=== PATIENT | female | born 1945 | race Caucasian/White ===

== ENCOUNTER 2020-09-02 13:51 | Emergency (ER) | payer MEDICARE ==
[~2020-09-02 13:51] MED LIST: ALAVERT10 MG PO; ALPRAZOLAM0.5 MG PO; AMOXICILLIN875 MG PO; CATAPRES0.3 MG PO; CELEXA10 MG PO; CILOSTAZOL50 MG PO; FENOFIBRATE54 MG PO; LEVOTHYROXINE75 MCG PO; ZESTRIL20 MG PO; ZOCOR40 MG PO
[2020-09-02 16:42] LABS: HEMOGLOBIN 13.5 gm/dl (12.3-15.3); RED BLOOD COUNT 4.28 M/UL (4.00-5.10)
[2020-09-02 16:44] LABS: WHITE BLOOD COUNT 9.7 K/UL (4.5-11.0)
[2020-09-02 17:10] LABS: BUN/CREATININE RATIO 16 (0-10)
== END 2020-09-02 16:32 | disposition home or self-care (01) ==
LOC: ER1 13:51
PROVIDERS: Physician Assistant
DX: R07.89 Other chest pain (principal); M79.621 Pain in right upper arm; I12.9 Hypertensive chronic kidney disease with stage 1 through stage 4 chronic kidney disease, or unspecified chronic kidney disease; E11.22 Type 2 diabetes mellitus with diabetic chronic kidney disease; N18.4 Chronic kidney disease, stage 4 (severe); E78.5 Hyperlipidemia, unspecified; F17.200 Nicotine dependence, unspecified, uncomplicated; Z88.6 Allergy status to analgesic agent
CPT/HCPCS: 71045; 80053; 82550; 82553; 83874; 84484; 85025; 93971; 99285

== ENCOUNTER 2021-03-01 11:02 | Inpatient (IN) | payer MEDICARE ==
[~2021-03-01] VITALS: Ht 152.4 cm; Wt 83.5 kg
[~2021-03-01 11:02] MED LIST changes: -ALPRAZOLAM0.5 MG PO; +LEVOTHYROXINE100 MCG PO; -LEVOTHYROXINE75 MCG PO; +XANAX1 MG PO
[2021-03-01 11:47] LABS: RED BLOOD COUNT 3.61 M/UL (4.00-5.10); WHITE BLOOD COUNT 12.9 K/UL (4.5-11.0)
[2021-03-01] MEDS ORDERED: CARVEDILOL6.25 MG PO (15:20)
[2021-03-01] MEDS ORDERED: LEVOCETIRIZINE D5 MG PO (15:21)
[2021-03-01] MEDS ORDERED: HYDRALAZINE HCL10 MG PO (15:21)
[2021-03-01] MEDS ORDERED: AMLODIPINE BESY10 MG PO (15:21)
[2021-03-01] MEDS ORDERED: SPIRONOLACTONE25 MG PO (15:22)
[2021-03-01] MEDS ORDERED: DONEPEZIL HCL10 MG PO (15:22)
[2021-03-01] MEDS ORDERED: PAROXETINE HCL40 MG PO (15:23)
[2021-03-01] MEDS ORDERED: ESCITALOPRAM OXA5 MG PO (15:23)
[2021-03-01] MEDS ORDERED: VITAMIN D325 MCG PO (15:24)
--- NOTE | 2021-03-02 02:23 | NUR ---
03/02/21 0100 CLIMBING OUT OF BED, WILD PULLING LEADS OFF, MD NOTIFIED, MEDS GIVEN 0145 CONTINUES TO CLIMB OUT OF BED, NOTIFIED 224 LAYING IN BED WATCHING TV CALMLY AT THIS TIME
[2021-03-02 09:13] LABS: HEMOGLOBIN 11.4 gm/dl (12.3-15.3); RED BLOOD COUNT 3.59 M/UL (4.00-5.10); WHITE BLOOD COUNT 11.3 K/UL (4.5-11.0)
[2021-03-02 09:59] LABS: BUN/CREATININE RATIO 20 (0-10)
--- NOTE | 2021-03-03 01:34 | NUR ---
PATIENT NOTED TO BE LABORED BREATHING AND AUDIBLE WHEEZES. PT PLACED ON HIGH FLOW OXYGEN AT 15 lITERS. 02 SAT IS 90% ATTEMPTED TO CALL DR AKINS NO ANSWER WILL CONTINUE MONITOR.
--- NOTE | 2021-03-03 03:02 | NUR ---
PATIENT NOTED TO HAVE LABORED BREATHING AND OXYGEN IS 88% ON 15L HIGH FLOW. CALLED DR AKINS AND MADE HIM AWARE OF PTS CHANGES. STATES TO PUT HER ON AIRVO AND HE WILL COME SEE.
--- NOTE | 2021-03-03 03:22 | NUR ---
DR AKINS AT BEDSIDE TO ASSESS PATIENT. POINTED OUT HER HISTORY AND LABORED BREATHING AND DECLINE IN OXYGEN STATS. HE STATES, " THIS IS JUST SLEEP APNEA, SHE IS FINE." HE ORDERED AIRVO AND RT PLACED PT ON IT. 90% ON AIRVO AND HER O2 SAT IS 92%.
[2021-03-03 10:37] LABS: HEMOGLOBIN 11.6 gm/dl (12.3-15.3); RED BLOOD COUNT 3.7 M/UL (4.00-5.10)
[2021-03-03 10:45] LABS: WHITE BLOOD COUNT 16.3 K/UL (4.5-11.0)
[2021-03-03 13:37] LABS: BORDETELLA PARAPERTUSSIS Not Detected (Not Detectd); BORDETELLA PERTUSSIS Not Detected (Not Detectd); CHLAMYDIA PNEUMONIAE Not Detected (Not Detectd); CORONAVIRUS HKU1 Not Detected (Not Detectd); CORONAVIRUS NL63 Not Detected (Not Detectd); CORONAVIRUS OC43 Not Detected (Not Detectd); CORONOAVIRUS 229E Not Detected (Not Detectd); HUMAN METAPNEUMOVIRUS Not Detected (Not Detectd); HUMAN RHINOVIRUS/ENTEROVIRUS Not Detected (Not Detectd); INFLUENZA A Not Detected (Not Detectd); INFLUENZA B Not Detected (Not Detectd); MYCOPLASMA PNEUMONIAE Not Detected (Not Detectd); PARAINFLUENZA VIRUS 1 Not Detected (Not Detectd); PARAINFLUENZA VIRUS 2 Not Detected (Not Detectd); PARAINFLUENZA VIRUS 3 Not Detected (Not Detectd); PARAINFLUENZA VIRUS 4 Not Detected (Not Detectd); RESPIRATORY SYNCYTIAL VIRUS Not Detected (Not Detectd)
[2021-03-03 15:14] LABS: SARS-CoV-2 NOT DETECTED (Not Detectd)
[2021-03-04 05:23] LABS: HEMOGLOBIN 11.5 gm/dl (12.3-15.3); RED BLOOD COUNT 3.72 M/UL (4.00-5.10); WHITE BLOOD COUNT 15.9 K/UL (4.5-11.0)
[2021-03-05 05:24] LABS: HEMOGLOBIN 11.2 gm/dl (12.3-15.3); RED BLOOD COUNT 3.69 M/UL (4.00-5.10)
[2021-03-05 05:25] LABS: WHITE BLOOD COUNT 10.9 K/UL (4.5-11.0)
[2021-03-06 04:48] LABS: HEMOGLOBIN 11.6 gm/dl (12.3-15.3); RED BLOOD COUNT 3.81 M/UL (4.00-5.10)
[2021-03-06 04:51] LABS: WHITE BLOOD COUNT 15.2 K/UL (4.5-11.0)
[2021-03-07 04:21] LABS: HEMOGLOBIN 11.3 gm/dl (12.3-15.3); RED BLOOD COUNT 3.67 M/UL (4.00-5.10); WHITE BLOOD COUNT 15.1 K/UL (4.5-11.0)
[2021-03-08 05:25] LABS: HEMOGLOBIN 11.6 gm/dl (12.3-15.3); RED BLOOD COUNT 3.77 M/UL (4.00-5.10); WHITE BLOOD COUNT 12.7 K/UL (4.5-11.0)
--- NOTE | 2021-03-08 17:01 | NUR ---
PATIENT DAUGHTER DEBORA TOOK PATIENT RING
--- NOTE | 2021-03-08 20:33 | NUR ---
2024 PT BEGAN PULLING AT OXYGEN AND NGT. RN EDUCATED PT ON NEED FOR BOTH. PT STATES "I DON'T CARE" AND BEGAN SLAPPING RN HANDS. PT ATTEMPTING TO GET OUT OF BED. VERBAL REDIRECTION GIVEN. PT BEGINS PULLING AT OXYGEN AGAIN AND DESATTING. IM HALDOL GIVEN PER 2034 ATTEMPTING TO ASSIST PT WITH BREATHING TREATMENT, PT SLAPPED RN ON ARM. BLOW BY BREATHING TREATMENT GIVEN. PT EDUCATED ON NEED FOR RESP CARE.
[2021-03-09 05:39] LABS: HEMOGLOBIN 11.6 gm/dl (12.3-15.3); RED BLOOD COUNT 3.82 M/UL (4.00-5.10); WHITE BLOOD COUNT 10.8 K/UL (4.5-11.0)
[2021-03-10 05:00] LABS: HEMOGLOBIN 12.3 gm/dl (12.3-15.3); RED BLOOD COUNT 4.04 M/UL (4.00-5.10); WHITE BLOOD COUNT 13.3 K/UL (4.5-11.0)
[2021-03-11 05:01] LABS: RED BLOOD COUNT 4.28 M/UL (4.00-5.10); WHITE BLOOD COUNT 12.3 K/UL (4.5-11.0)
--- NOTE | 2021-03-11 09:52 | NUR ---
0920: PATIENT IS AWAKE BUT UNABLE TO FOLLOW COMMANDS, STICK OUT TONGUE, SQUEEZE MY FINGERS BILATERALLY, FOLLOW MY FINGER WITH HER EYES AND HER PUPILS ARE DIALATED AND VERY SLOW TO REACT. DR. BEST NOTIFIED JESSE. ESTEPHANIA GANDHI AT BEDSIDE FOR NEURO EVALUATION. STAT CT ORDERED.
--- NOTE | 2021-03-11 11:16 | NUR ---
DR. BEST AT BEDSIDE. CT SCAN REVIEWED. ALTERED MENTAL STATUS PERCEIVED TO BE RELATED TO INCREASED SODIUM LEVEL. PATIENT STARTED ON D5 @ 100ML/HR TO CORRECT SODIUM LEVEL. NEURO STATUS CONTINUED TO BE MONITORED. CT TO BE REPEATED IN [address] BEST IS MENTAL STATUS HAS NOT GOTTEN BETTER.
--- NOTE | 2021-03-11 13:50 | NUR ---
PATIENT NEURO STATUS WORSENING AND RESPIRATIONS HAVE BEEN CONSISTENTLY TACHYPNIC. DR. BEST NOTIFIED AND ORDERED HER TO BE PLACED BACK ON BIPAP, AN ABG DONE AT 1400 AND A VQ SCAN TO BE DONE WELL.
[2021-03-12 05:03] LABS: HEMOGLOBIN 11.5 gm/dl (12.3-15.3); WHITE BLOOD COUNT 13.1 K/UL (4.5-11.0)
[2021-03-12 05:05] LABS: RED BLOOD COUNT 3.78 M/UL (4.00-5.10)
--- NOTE | 2021-03-12 13:48 | NUR ---
1305, BEDSIDE TIMEOUT COMPLETED, LUMBAR PUNCTURE MD AT BEDSIDE, DIRECTOR OF DISTANCE LEARNING X2 AT BEDSIDE, RN X2 AT BEDSIDE PATIENT IN POSITION. PROEDURE COMPLETE AND PATIENT TOLERATED WELL SPECIMENS SENT TO LAB FOR PROCESSING
[2021-03-12 13:52] LABS: CRYPTOCOCCUS NEOFORMANS/GATTII Not Detected (Negative); CYTOMEGALOVIRUS Not Detected (Negative); ENTEROVIRUS Not Detected (Negative); ESCHERICHIA COLI K1 Not Detected (Negative); HAEMOPHILUS INFLUENZAE Not Detected (Negative); HERPES SIMPLEX VIRUS 1 Not Detected (Negative); HERPES SIMPLEX VIRUS 2 Not Detected (Negative); HUMAN HERPESVIRUS 6 Not Detected (Negative); HUMAN PARECHOVIRUS Not Detected (Negative); LISTERIA MONOCYTOGENES Not Detected (Negative); NEISERRIA MENINGITIDIS Not Detected (Negative); STREPTOCOCCUS AGALACTIAE Not Detected (Negative); STREPTOCOCCUS PNEUMONIAE Not Detected (Negative); VARICELLA ZOSTER VIRUS Not Detected (Negative)
[2021-03-12 14:36] LABS: RBC (AUTOMATED) 100 10^6 (0); WBC (AUTOMATED 2 10^3 (0-5)
[2021-03-12 14:37] LABS: WBC (AUTOMATED 2 10^3 (0-5)
[2021-03-12 14:40] LABS: GLUCOSE,CSF 67 mg/dL (50-80); TOTAL PROTEIN,CSF 44 mg/dL (20-45)
[2021-03-13 05:27] LABS: HEMOGLOBIN 10.6 gm/dl (12.3-15.3); RED BLOOD COUNT 3.51 M/UL (4.00-5.10); WHITE BLOOD COUNT 14.1 K/UL (4.5-11.0)
[2021-03-14 04:32] LABS: RED BLOOD COUNT 3.32 M/UL (4.00-5.10); WHITE BLOOD COUNT 11.1 K/UL (4.5-11.0)
[2021-03-15 05:18] LABS: HEMOGLOBIN 10.3 gm/dl (12.3-15.3); RED BLOOD COUNT 3.4 M/UL (4.00-5.10); WHITE BLOOD COUNT 10.7 K/UL (4.5-11.0)
[2021-03-16 04:18] LABS: HEMOGLOBIN 10.1 gm/dl (12.3-15.3); RED BLOOD COUNT 3.38 M/UL (4.00-5.10)
[2021-03-16 04:30] LABS: WHITE BLOOD COUNT 7.7 K/UL (4.5-11.0)
[2021-03-17 12:49] LABS: HEMOGLOBIN 10.7 gm/dl (12.3-15.3); RED BLOOD COUNT 3.48 M/UL (4.00-5.10); WHITE BLOOD COUNT 11.4 K/UL (4.5-11.0)
[2021-03-18 05:18] LABS: HEMOGLOBIN 10.1 gm/dl (12.3-15.3); RED BLOOD COUNT 3.29 M/UL (4.00-5.10)
[2021-03-18 05:21] LABS: WHITE BLOOD COUNT 7.6 K/UL (4.5-11.0)
[2021-03-19 04:32] LABS: RED BLOOD COUNT 3.32 M/UL (4.00-5.10); WHITE BLOOD COUNT 7.6 K/UL (4.5-11.0)
[2021-03-20 02:34] LABS: HEMOGLOBIN 10.2 gm/dl (12.3-15.3); RED BLOOD COUNT 3.31 M/UL (4.00-5.10); WHITE BLOOD COUNT 7.7 K/UL (4.5-11.0)
[2021-03-21 02:48] LABS: HEMOGLOBIN 9.9 gm/dl (12.3-15.3); RED BLOOD COUNT 3.25 M/UL (4.00-5.10); WHITE BLOOD COUNT 7.4 K/UL (4.5-11.0)
[2021-03-22 03:12] LABS: HEMOGLOBIN 9.9 gm/dl (12.3-15.3); RED BLOOD COUNT 3.3 M/UL (4.00-5.10); WHITE BLOOD COUNT 6.6 K/UL (4.5-11.0)
[2021-03-23 02:43] LABS: RED BLOOD COUNT 3.3 M/UL (4.00-5.10); WHITE BLOOD COUNT 7.4 K/UL (4.5-11.0)
[2021-03-24 04:22] LABS: HEMOGLOBIN 10.3 gm/dl (12.3-15.3); RED BLOOD COUNT 3.39 M/UL (4.00-5.10); WHITE BLOOD COUNT 7.4 K/UL (4.5-11.0)
[2021-03-25 06:26] LABS: HEMOGLOBIN 10.2 gm/dl (12.3-15.3); RED BLOOD COUNT 3.34 M/UL (4.00-5.10); WHITE BLOOD COUNT 5.8 K/UL (4.5-11.0)
[2021-03-26 06:48] LABS: HEMOGLOBIN 10.8 gm/dl (12.3-15.3); RED BLOOD COUNT 3.58 M/UL (4.00-5.10); WHITE BLOOD COUNT 5.7 K/UL (4.5-11.0)
[2021-03-26] MEDS ORDERED: SYMBICORT 16010.2 GM INH (09:06)
[2021-03-26] MEDS ORDERED: COMBIVENT RESPIM4 GM INH (09:06)
== END 2021-03-26 19:52 | DRG 870 ==
LOC: ER1 11:02 → PROG CARE 14:07 → CDU 14:07 → CCU 14:07 → PROG CARE 19:19 → CCU 03-03 18:20 → PROG CARE 03-19 10:06 → MED SURG 4 03-24 20:06
PROVIDERS: Emergency Medicine; Internal Medicine; Internal Medicine Critical Care Medicine; Internal Medicine Nephrology; ADMIT Internal Medicine
PROC: B24BZZZ Ultrasonography of Heart with Aorta (ICD-10-PCS; 2021-03-02)
PROC: 5A0945A Assistance with Respiratory Ventilation, 24-96 Consecutive Hours, High Flow/Velocity Cannula (ICD-10-PCS; 2021-03-02)
PROC: 5A1945Z Respiratory Ventilation, 24-96 Consecutive Hours (ICD-10-PCS; 2021-03-03)
PROC: 0BH17EZ Insertion of Endotracheal Airway into Trachea, Via Natural or Artificial Opening (ICD-10-PCS; 2021-03-03)
PROC: 02HV33Z Insertion of Infusion Device into Superior Vena Cava, Percutaneous Approach (ICD-10-PCS; 2021-03-03)
PROC: B548ZZA Ultrasonography of Superior Vena Cava, Guidance (ICD-10-PCS; 2021-03-03)
PROC: 3E0G76Z Introduction of Nutritional Substance into Upper GI, Via Natural or Artificial Opening (ICD-10-PCS; 2021-03-04)
PROC: 0B9B8ZZ Drainage of Left Lower Lobe Bronchus, Via Natural or Artificial Opening Endoscopic (ICD-10-PCS; 2021-03-04)
PROC: 0B938ZZ Drainage of Right Main Bronchus, Via Natural or Artificial Opening Endoscopic (ICD-10-PCS; 2021-03-04)
PROC: 0B978ZZ Drainage of Left Main Bronchus, Via Natural or Artificial Opening Endoscopic (ICD-10-PCS; 2021-03-04)
PROC: 0DH63UZ Insertion of Feeding Device into Stomach, Percutaneous Approach (ICD-10-PCS; principal; 2021-03-04 10:47)
PROC: 5A09457 Assistance with Respiratory Ventilation, 24-96 Consecutive Hours, Continuous Positive Airway Pressure (ICD-10-PCS; 2021-03-05)
PROC: 5A0955A Assistance with Respiratory Ventilation, Greater than 96 Consecutive Hours, High Flow/Velocity Cannula (ICD-10-PCS; 2021-03-07)
PROC: 5A1955Z Respiratory Ventilation, Greater than 96 Consecutive Hours (ICD-10-PCS; 2021-03-11)
PROC: 0BH17EZ Insertion of Endotracheal Airway into Trachea, Via Natural or Artificial Opening (ICD-10-PCS; 2021-03-11)
PROC: 3E043XZ Introduction of Vasopressor into Central Vein, Percutaneous Approach (ICD-10-PCS; 2021-03-11)
PROC: 009U3ZX Drainage of Spinal Canal, Percutaneous Approach, Diagnostic (ICD-10-PCS; 2021-03-12)
PROC: B01B1ZZ Fluoroscopy of Spinal Cord using Low Osmolar Contrast (ICD-10-PCS; 2021-03-12)
PROC: 5A09457 Assistance with Respiratory Ventilation, 24-96 Consecutive Hours, Continuous Positive Airway Pressure (ICD-10-PCS; 2021-03-15)
PROC: 5A0945A Assistance with Respiratory Ventilation, 24-96 Consecutive Hours, High Flow/Velocity Cannula (ICD-10-PCS; 2021-03-17)
DX: A41.51 Sepsis due to Escherichia coli [E. coli] (principal); J96.21 Acute and chronic respiratory failure with hypoxia; Z20.822 Contact with and (suspected) exposure to COVID-19; J69.0 Pneumonitis due to inhalation of food and vomit; G92.8 Other toxic encephalopathy; R65.21 Severe sepsis with septic shock; J96.22 Acute and chronic respiratory failure with hypercapnia; N17.9 Acute kidney failure, unspecified; N39.0 Urinary tract infection, site not specified; I82.812 Embolism and thrombosis of superficial veins of left lower extremity; E87.0 Hyperosmolality and hypernatremia; N18.5 Chronic kidney disease, stage 5; I12.0 Hypertensive chronic kidney disease with stage 5 chronic kidney disease or end stage renal disease; E87.2 Acidosis; Z99.11 Dependence on respirator [ventilator] status; J98.11 Atelectasis; J44.9 Chronic obstructive pulmonary disease, unspecified; F03.90 Unspecified dementia, unspecified severity, without behavioral disturbance, psychotic disturbance, mood disturbance, and anxiety; E03.9 Hypothyroidism, unspecified; W18.30XA Fall on same level, unspecified, initial encounter; L89.326 Pressure-induced deep tissue damage of left buttock; L89.316 Pressure-induced deep tissue damage of right buttock; N18.9 Chronic kidney disease, unspecified; E78.5 Hyperlipidemia, unspecified; E83.52 Hypercalcemia; E87.5 Hyperkalemia; R41.0 Disorientation, unspecified; R53.81 Other malaise; R07.89 Other chest pain; D63.1 Anemia in chronic kidney disease; E66.9 Obesity, unspecified; E86.9 Volume depletion, unspecified; I44.1 Atrioventricular block, second degree; E86.0 Dehydration; F17.210 Nicotine dependence, cigarettes, uncomplicated; I25.10 Atherosclerotic heart disease of native coronary artery without angina pectoris; Z95.5 Presence of coronary angioplasty implant and graft; Z99.81 Dependence on supplemental oxygen; Z86.73 Personal history of transient ischemic attack (TIA), and cerebral infarction without residual deficits; Z82.49 Family history of ischemic heart disease and other diseases of the circulatory system; Y93.9 Activity, unspecified; Z68.35 Body mass index [BMI] 35.0-35.9, adult
CPT/HCPCS: ECHO; 31500; 36415; 36600; 51702; 70450; 70551; 71045; 71250; 80048; 80053; 80202; 81001; 82140; 82550; 82553; 82803; 82945; 82962; 83036; 83605; 83735; 83880; 83930; 83935; 84100; 84132; 84157; 84439; 84443; 84484; 85025; 85027; 85379; 85610; 85730; 87015; 87040; 87070; 87077; 87081; 87086; 87116; 87186; 87205; 87206; 87278; 87483; 87633; 89051; 92526; 92610; 93005; 93306; 93880; 93970; 93971; 94002; 94003; 94640; 94660; 94664; 94668; 94760; 96374; 97110; 97110-GP-CQ; 97161; 97162; 97166; 97530; 97530-GP-CQ; 99284; A6212; A9540; C1751; C9113; J0133; J0330; J0360; J0456; J0692; J0696; J1335; J1630; J1644; J1650; J1940; J2185; J2405; J2704; J2765; J2920; J3010; J3370; J3480; J3486; J7030; J7040; J7050; J7060; J7070; J7121; U0002